=== PATIENT | male | born 1960 | race Caucasian/White ===

== ENCOUNTER 2016-10-22 05:31 | Emergency (ER) | payer OTHER | END 2016-10-22 07:20 | disposition home or self-care (01) | LOC: FER 05:31 | DX: M54.41 Lumbago with sciatica, right side (principal); E78.5 Hyperlipidemia, unspecified; Z87.828 Personal history of other (healed) physical injury and trauma; Z79.899 Other long term (current) drug therapy | CPT/HCPCS: J1100; J2270 ==